=== PATIENT | male | born 1945 | race Caucasian/White ===

== ENCOUNTER 2018-02-28 18:09 | Emergency (ER) | payer OTHER ==
[~2018-02-28] VITALS: Ht 162.6 cm; Wt 54.4 kg
[2018-02-28 18:43] VITALS: BP 137/87; Ht 162.6 cm; Wt 54.4 kg
== END 2018-02-28 20:01 | disposition left against medical advice (07) ==
LOC: ED 18:09
DX: Z53.21 Procedure and treatment not carried out due to patient leaving prior to being seen by health care provider (principal)